=== PATIENT | male | born 1970 | race Caucasian/White ===

== ENCOUNTER 2017-09-02 12:29 | Emergency (ER) | payer OTHER ==
[~2017-09-02] VITALS: Ht 180.3 cm; Wt 102.1 kg
[~2017-09-02 12:29] MED LIST: LISI10TA2 PO; METF500T4 PO
[2017-09-02] MEDS ORDERED: IV NORMAL SALINE 1000ML BAG 1,000 ML IV SCH (12:52)
--- NOTE | 2017-09-02 13:04 | PHYS DOC ---
Past Medical History Past Medical History: Diabetes-Type II, GERD Past Surgical History: Other Additional Past Surgical Histo: left hand injury Alcohol Use: Occasionally Drug Use: None Adult General Chief Complaint Chief Complaint: DIZZY/LIGHT HEADED HPI HPI Patient is a 46 year old male who presents with complaint of lightheadedness and shaking. Patient states that he awoke with these symptoms and states that they have progressively worsened over the past 1-2 hours. Patient states that he has felt very lightheaded and has had episodes where he felt like he is going to pass out. Patient states that this normally happens whenever his blood sugar is low, however he has been checking his blood sugars and notes that they have not been abnormally low. Patient states he did eat prior to coming into the emergency department hoping that would help but has not improved his symptoms. Patient states that he feels shaky all over and also states that he is having mild chest tightness but denies that he is having any pain in his chest. Patient has history of hypertension, type 2 diabetes mellitus, and hyperlipidemia. Patient denies any abdominal pain, nausea, vomiting, or fever. Review of Systems Review of Systems Constitutional: Dizziness, lightheadedness, denies fever or chills[] Eyes: Denies change in visual acuity, redness, or eye pain [] HENT: Denies nasal congestion or sore throat [] Respiratory: Denies cough or shortness of breath [] Cardiovascular: "Chest tightness"[] GI: Denies abdominal pain, nausea, vomiting, bloody stools or diarrhea [] : Denies dysuria or hematuria [] Musculoskeletal: Denies back pain or joint pain [] Integument: Denies rash or skin lesions [] Neurologic: Denies headache, focal weakness or sensory changes [] All other systems were reviewed and found to be within normal limits, except as documented in this note. Current Medications Current Medications Current Medications Medications (Trade) Dose Ordered Sig/Aurelia Start Time Stop Time Status Last Admin Dose Admin Lorazepam (Ativan) 0.5 mg 1X ONCE 09/02/17 13:00 09/02/17 13:01 DC 09/02/17 13:24 0.5 MG Sodium Chloride 1,000 ml @ 1,000 mls/hr Q1H 09/02/17 12:52 09/02/17 13:51 DC 09/02/17 13:24 1,000 MLS/HR Allergies Allergies Allergies Coded Allergies Type Severity Reaction Last Updated Verified No Known Drug Allergies 02/13/16 No Physical Exam Physical Exam Constitutional: Alert, afebrile, tremulous, appears in mild distress. [] HENT: Normocephalic, atraumatic, bilateral external ears normal, oropharynx moist, no oral exudates, nose normal. [] Eyes: PERRLA, EOMI, conjunctiva normal, no discharge. [] Neck: Normal range of motion, no tenderness, supple, no stridor. [] Cardiovascular: Tachycardia, regular rhythm, no murmur [] Lungs & Thorax: Bilateral breath sounds clear to auscultation [] Abdomen: Bowel sounds normal, soft, no tenderness, no masses, no pulsatile masses. [] Skin: Warm, dry, no erythema, no rash. [] Back: No tenderness, no CVA tenderness. [] Extremities: No tenderness, no cyanosis, no clubbing, ROM intact, no edema. [] Neurologic: Alert and oriented X 3, normal motor function, normal sensory function, no focal deficits noted. [] Current Patient Data Vital Signs Vital Signs Date Time Temp Pulse Resp B/P (MAP) Pulse Ox O2 Delivery O2 Flow Rate FiO2 09/02/17 16:00 88 97 09/02/17 12:50 98.0 20 172/97 (122) Room Air 98.0 Lab Values Laboratory Tests Test 09/02/17 12:43 09/02/17 12:55 09/02/17 14:10 09/02/17 15:47 Glucose (Fingerstick) 128 mg/dL (70-99) H White Blood Count 5.7 x10^3/uL (4.0-11.0) Red Blood Count 4.78 x10^6/uL (4.30-5.70) Hemoglobin 15.5 g/dL (13.0-17.5) Hematocrit 45.3 % (39.0-53.0) Mean Corpuscular Volume 95 fL (79-100) Mean Corpuscular Hemoglobin 32 pg (25-35) Mean Corpuscular Hemoglobin Concent 34 g/dL (31-37) Red Cell Distribution Width 13.6 % (11.5-14.5) Platelet Count 166 x10^3/uL (140-400) Neutrophils (%) (Auto) 76 % (31-73) H Lymphocytes (%) (Auto) 13 % (24-48) L Monocytes (%) (Auto) 8 % (0-9) Eosinophils (%) (Auto) 1 % (0-3) Basophils (%) (Auto) 1 % (0-3) Neutrophils # (Auto) 4.3 x10^3uL (1.8-7.7) Lymphocytes # (Auto) 0.8 x10^3/uL (1.0-4.8) L Monocytes # (Auto) 0.5 x10^3/uL (0.0-1.1) Eosinophils # (Auto) 0.1 x10^3/uL (0.0-0.7) Basophils # (Auto) 0.1 x10^3/uL (0.0-0.2) Sodium Level 132 mmol/L (136-145) L Potassium Level 3.8 mmol/L (3.5-5.1) Chloride Level 95 mmol/L (98-107) L Carbon Dioxide Level 25 mmol/L (21-32) Anion Gap 12 (6-14) Blood Urea Nitrogen 13 mg/dL (8-26) Creatinine 0.8 mg/dL (0.7-1.3) Estimated GFR (Cockcroft-Gault) 104.1 BUN/Creatinine Ratio 16 (6-20) Glucose Level 119 mg/dL (70-99) H Calcium Level 9.4 mg/dL (8.5-10.1) Total Bilirubin 0.7 mg/dL (0.2-1.0) Aspartate Amino Transferase (AST) 33 U/L (15-37) Alanine Aminotransferase (ALT) 39 U/L (16-63) Alkaline Phosphatase 78 U/L (46-116) Creatine Kinase 412 U/L (39-308) H 313 U/L (39-308) H Creatine Kinase MB (Mass) 3.8 ng/mL (0.0-3.6) H 2.6 ng/mL (0.0-3.6) Creatine Kinase MB Relative Index 0.9 % (0-4) 0.8 % (0-4) Troponin I Quantitative < 0.017 ng/mL (0.000-0.055) < 0.017 ng/mL (0.000-0.055) Total Protein 8.4 g/dL (6.4-8.2) H Albumin 4.5 g/dL (3.4-5.0) Albumin/Globulin Ratio 1.2 (1.0-1.7) Lipase 185 U/L (73-393) Urine Collection Type Unknown Urine Color Yellow Urine Clarity Clear Urine pH 7.5 Urine Specific [place] <=1.005 Urine Protein Negative mg/dL (NEG-TRACE) Urine Glucose (UA) Negative mg/dL (NEG) Urine Ketones (Stick) Trace mg/dL (NEG) Urine Blood Negative (NEG) Urine Nitrite Negative (NEG) Urine Bilirubin Negative (NEG) Urine Urobilinogen Dipstick 1.0 mg/dL (0.2 mg/dL) Urine Leukocyte Esterase Trace (NEG) Urine RBC 0 /HPF (0-2) Urine WBC Occ /HPF (0-4) Urine Bacteria 0 /HPF (0-FEW) Laboratory Tests 09/02/17 12:55 Laboratory Tests 09/02/17 12:55 EKG EKG EKG #1 interpreted by me at 1255: Heart rate 104, sinus tachycardia, normal intervals, normal axis, no acute ST/T-wave abnormalities present EKG #2 interpreted by me at 1550: Heart rate 88, sinus rhythm, normal intervals , normal axis, no acute ST/T-wave abnormalities present[] Radiology/Procedures Radiology/Procedures [facility] [address] [place] [address] IMAGING REPORT Signed PATIENT: LILIANA JULIO ACCOUNT: [id number] : 1970 LOCATION: ER AGE: 46 SEX: M EXAM STATUS: REG ER ORD. PHYSICIAN: ROSARIO MONDRAGON MD REASON: dizziness, near syncope PROCEDURE: PORTABLE CHEST 1V Indication: Dizziness. Time of exam 1335 hours. No prior studies are available for comparison. FINDINGS: The heart size is normal. The lungs are clear. No pleural effusion or pneumothorax is identified. The pulmonary vascularity is normal. IMPRESSION: No acute abnormality detected. DICTATED and SIGNED BY: AHSAN HODGES MD DATE: 09/02/17 3412 CC: ROSARIO MONDRAGON MD; CEDRIC HALEY APRN ~ [] Course & Med Decision Making Course & Med Decision Making Pertinent Labs and Imaging studies reviewed. (See chart for details) Patient was given IV fluids and Ativan in the emergency department. The patient' s initial cardiac enzyme panel showed an elevation in CK and CK-MB with a normal cardiac index and a normal troponin level. The patient stated that his symptoms have completely resolved after being given the fluids and Ativan. A second set of cardiac enzymes and a second EKG were obtained. The second EKG showed no changes in the patient's second panel of cardiac enzymes showed a downward trend in the CK and CK-MB and a continued normal troponin level. The patient's symptoms are atypical for acute coronary syndrome. The patient's symptoms appear likely due to an acute stress reaction or possible panic attack. The patient's HEART score is 2 which places him in a low risk category for acute cardiac events. The patient is appropriate for outpatient discharge and follow-up in the next 2 days with cardiology for reevaluation. Advised patient to return emergency department for any worsening symptoms. The patient will continue on a daily aspirin 81 mg tablet until following up with cardiology. Patient voiced understanding and in agreement with treatment plan. Dragon Disclaimer Dragon Disclaimer This electronic medical record was generated, in whole or in part, using a voice recognition dictation system. Departure Departure Impression: Primary Impression: Light-headedness Additional Impression: Acute stress reaction Disposition: 01 HOME, SELF-CARE Condition: IMPROVED Referrals: CEDRIC HALEY APRN (PCP) EDINSON ADAME MD Patient Instructions: Anxiety and Panic Attacks, Near-Syncope Additional Instructions: Your evaluation in the emergency department showed no evidence of an acute life- threatening process. It is however recommended that she follow up with cardiology in the next 2 days for reevaluation. You will also be started on daily aspirin at this time as a protective measure for your heart. Please return to the emergency department for any worsening symptoms. Scripts Aspirin (ASPIR 81) 81 Mg Tablet.dr 1 TAB PO DAILY, #30 TAB 0 Refills Prov: ROSARIO MONDRAGON MD 09/02/17 Problem Qualifiers ROSARIO MONDRAGON MD Sep 02, 2017 13:04
[2017-09-02 13:13] LABS: BASO # 0.1 x10^3/uL (0.0-0.2); BASO % 1 % (0-3); CALCIUM 9.4 mg/dL (8.5-10.1); CREATININE 0.8 mg/dL (0.7-1.3); EOS % 1 % (0-3); GFR 104.1; HEMATOCRIT 45.3 % (39.0-53.0); HEMOGLOBIN 15.5 g/dL (13.0-17.5); LYMPH # 0.8 x10^3/uL (1.0-4.8); LYMPH % 13 % (24-48); MEAN CORPUSCULAR HEMOGLOBIN 32 pg (25-35); MEAN CORPUSCULAR HGB CONC 34 g/dL (31-37); MEAN CORPUSCULAR VOLUME 95 fL (79-100); MONO % 8 % (0-9); NEUT % 76 % (31-73); PLATELET COUNT 166 x10^3/uL (140-400); POTASSIUM 3.8 mmol/L (3.5-5.1); RED BLOOD COUNT 4.78 x10^6/uL (4.30-5.70); RED CELL DISTRIBUTION WIDTH 13.6 % (11.5-14.5); WHITE BLOOD COUNT 5.7 x10^3/uL (4.0-11.0)
[2017-09-02 13:19] LABS: ALBUMIN 4.5 g/dL (3.4-5.0); ALBUMIN/GLOBULIN RATIO 1.2 (1.0-1.7); TOTAL BILIRUBIN 0.7 mg/dL (0.2-1.0); TOTAL PROTEIN 8.4 g/dL (6.4-8.2)
[2017-09-02 13:28] LABS: CKMB MASS 3.8 ng/mL (0.0-3.6)
--- NOTE | 2017-09-02 13:38 | EKG ---
[facility] [address] [place] [address] Test Date: 2017-09-02 Test Time: 12:52:34 Pat Name: LILIANA JULIO Department: Room: Gender: M [employer] Art[employer]: : 1970 Requested By: ROSARIO MONDRAGON Order Number: [id number] Reading MD: Measurements Intervals [place] Rate: 104 P: 39 MI: 166 QRS: 27 QRSD: 84 T: 42 QT: 328 QTc: 437 Interpretive Statements SINUS TACHYCARDIA LEFT ATRIAL ABNORMALITY ABNORMAL ECG RI6.01 No previous ECG available for comparison
--- NOTE | 2017-09-02 13:51 | RAD ---
Indication: Dizziness. Time of exam 1335 hours. No prior studies are available for comparison. FINDINGS: The heart size is normal. The lungs are clear. No pleural effusion or pneumothorax is identified. The pulmonary vascularity is normal. IMPRESSION: No acute abnormality detected.
[2017-09-02 14:18] LABS: BILIRUBIN,URINE NEGATIVE (NEG); GLUCOSE,URINE NEGATIVE (NEG); NITRITE,URINE NEGATIVE (NEG); PH,URINE 7.5; PROTEIN,URINE NEGATIVE (NEG-TRACE)
[2017-09-02 14:38] LABS: RBC,URINE 0 /HPF (0-2)
[2017-09-02 14:39] LABS: BACTERIA,URINE 0 /HPF (0-FEW); WBC,URINE OCC /HPF (0-4)
--- NOTE | 2017-09-02 15:47 | EKG ---
[facility] [address] [place] [address] Test Date: 2017-09-02 Test Time: 15:44:39 Pat Name: LILIANA JULIO Department: Room: Gender: M [employer] Person: : 1970 Requested By: ROSARIO MONDRAGON Order Number: [id number] Reading MD: Measurements Intervals [place] Rate: 88 P: 34 MD: 160 QRS: 25 QRSD: 84 T: 34 QT: 344 QTc: 420 Interpretive Statements SINUS RHYTHM NORMAL ECG RI6.01 No previous ECG available for comparison
[2017-09-02 16:28] LABS: CKMB MASS 2.6 ng/mL (0.0-3.6)
[2017-09-02] MEDS ORDERED: ASPIRIN 325 MG TABLET PO ONE (16:45)
[2017-09-02] MEDS ORDERED: ASPI-482 PO (16:46)
[2017-09-02 17:00] VITALS: BP 135/79
== END 2017-09-02 17:00 | disposition home or self-care (01) ==
LOC: ER 12:29
DX: R42 Dizziness and giddiness (principal); F43.0 Acute stress reaction; E11.9 Type 2 diabetes mellitus without complications; E78.5 Hyperlipidemia, unspecified; I10 Essential (primary) hypertension; K21.9 Gastro-esophageal reflux disease without esophagitis; Z79.82 Long term (current) use of aspirin
CPT/HCPCS: 36415; 71010; 80053; 81001; 82553; 82962; 83690; 84484; 85025; 87086; 93005; 96361; 96374; 99285; J2060; J7030

== ENCOUNTER → 2017-10-07 | Outpatient (CLI) | payer OTHER ==
[2017-10-07 08:56] LABS: ALBUMIN 4.1 g/dL (3.4-5.0); ALBUMIN/GLOBULIN RATIO 1.1 (1.0-1.7); ALK PHOS 70 U/L (46-116); ALT (SGPT) 40 U/L (16-63); ANION GAP 11 (6-14); AST (SGOT) 24 U/L (15-37); BLOOD UREA NITROGEN 15 mg/dL (8-26); BUN/CREATININE RATIO 21 (6-20); CALCIUM 8.6 mg/dL (8.5-10.1); CARBON DIOXIDE 25 mmol/L (21-32); CHLORIDE 104 mmol/L (98-107); CHOLESTEROL 212 mg/dL (0-200); CREATININE 0.7 mg/dL (0.7-1.3); GFR 121.4; GLUCOSE 88 mg/dL (70-99); HDLC 59 mg/dL (40-60); LDLC 128 mg/dL (0-100); NON-HDL CHOLESTEROL 153 mg/dL (0-129); POTASSIUM 4.3 mmol/L (3.5-5.1); SODIUM 140 mmol/L (136-145); TOTAL BILIRUBIN 0.8 mg/dL (0.2-1.0); TOTAL PROTEIN 7.9 g/dL (6.4-8.2); TRIGLYCERIDES 127 mg/dL (0-150); VLDLC 25 mg/dL (0-40)
[2017-10-07 08:59] LABS: CHOLESTEROL/HDL RATIO 3.6
[2017-10-07] MEDS: REGADENOSON 0.4 MG/5 ML DISP.SYRIN. IV (10:35)
== END | disposition home or self-care (01) ==
LOC: NM 08:07
DX: R07.89 Other chest pain (principal); E78.00 Pure hypercholesterolemia, unspecified; I10 Essential (primary) hypertension; E11.9 Type 2 diabetes mellitus without complications
CPT/HCPCS: 36415; 78452; 80053; 80061; 93017; 96374; 96375; 96376; A9500; J2785

== ENCOUNTER → 2017-11-17 | Outpatient (CLI) | payer OTHER | END | disposition home or self-care (01) | LOC: KCIC US 08:38 | DX: N43.3 Hydrocele, unspecified (principal); N50.812 Left testicular pain | CPT/HCPCS: 76870 ==

== ENCOUNTER 2018-08-19 00:26 | Emergency (ER) | payer OTHER ==
[~2018-08-19] VITALS: Ht 180.3 cm; Wt 99.8 kg
[~2018-08-19 00:26] MED LIST changes: +ASPI-482 PO; +METF500T16 PO; -METF500T4 PO
--- NOTE | 2018-08-19 00:47 | PHYS DOC ---
Past Medical History Past Medical History: Depression, Diabetes-Type II, GERD, High Cholesterol, Hypertension Past Surgical History: Other Additional Past Surgical Histo: left hand injury, RIGHT GREAT TOE AMPUTATION Alcohol Use: Occasionally Drug Use: None Adult General Chief Complaint Chief Complaint: SUICDAL IDEATION [facility] HPI Patient is a 47 year old with history of diabetes II, hypertension, depression, high cholesterol who presents today to the emergency room for suicide ideations. Patient states he is under a lot of stress. He states he was thinking of killing himself using a pistol. Patient denies any homicidal ideations. RN states patient was drinking. Patient not giving much information. Review of Systems Review of Systems Constitutional: Denies fever or chills [] Eyes: Denies change in visual acuity, redness, or eye pain [] HENT: Denies nasal congestion or sore throat [] Respiratory: Denies cough or shortness of breath [] Cardiovascular: No additional information not addressed in HPI [] GI: Denies abdominal pain, nausea, vomiting, bloody stools or diarrhea [] : Denies dysuria or hematuria [] Musculoskeletal: Denies back pain or joint pain [] Integument: Denies rash or skin lesions [] Neurologic: Denies headache, focal weakness or sensory changes [] Psych: Reports suicidal ideations All other systems were reviewed and found to be within normal limits, except as documented in this note. Current Medications Current Medications Current Medications Medications (Trade) Dose Ordered Sig/Aurelia Start Time Stop Time Status Last Admin Dose Admin Lorazepam (Ativan) 1 mg 1X ONCE 08/19/18 02:45 08/19/18 02:46 DC 08/19/18 02:43 1 MG Multivitamins 10 ml/Thiamine HCl 100 mg/Folic Acid 1 mg/Sodium Chloride 1,011.2 ml @ 1,000.088 mls/hr 1X ONCE 08/19/18 01:00 08/19/18 02:00 DC 08/19/18 00:58 1,000.088 MLS/HR Allergies Allergies Allergies Coded Allergies Type Severity Reaction Last Updated Verified No Known Drug Allergies 02/13/16 No Physical Exam Physical Exam Constitutional: Well developed, well nourished, no acute distress, non-toxic appearance. [] HENT: Normocephalic, atraumatic, bilateral external ears normal, oropharynx moist, no oral exudates, nose normal. [] Eyes: PERRLA, EOMI, conjunctiva normal, no discharge. [] Neck: Normal range of motion, no tenderness, supple, no stridor. [] Cardiovascular:Heart rate regular rhythm, no murmur [] Lungs & Thorax: Bilateral breath sounds clear to auscultation [] Abdomen: Bowel sounds normal, soft, no tenderness, no masses, no pulsatile masses. [] Skin: Warm, dry, no erythema, no rash. [] Back: No tenderness, no CVA tenderness. [] Extremities: No tenderness, no cyanosis, no clubbing, ROM intact, no edema. [] Neurologic: Alert and oriented X 3, normal motor function, normal sensory function, no focal deficits noted. [] Psychologic: Appears depressed Current Patient Data Vital Signs Vital Signs Date Time Temp Pulse Resp B/P (MAP) Pulse Ox O2 Delivery O2 Flow Rate FiO2 08/19/18 00:26 97.6 98 20 135/80 (98) 100 Room Air 97.6 Lab Values Laboratory Tests Test 08/19/18 00:54 08/19/18 01:40 White Blood Count 6.8 x10^3/uL (4.0-11.0) Red Blood Count 4.24 x10^6/uL (4.30-5.70) L Hemoglobin 13.9 g/dL (13.0-17.5) Hematocrit 39.7 % (39.0-53.0) Mean Corpuscular Volume 94 fL (79-100) Mean Corpuscular Hemoglobin 33 pg (25-35) Mean Corpuscular Hemoglobin Concent 35 g/dL (31-37) Red Cell Distribution Width 13.2 % (11.5-14.5) Platelet Count 132 x10^3/uL (140-400) L Neutrophils (%) (Auto) 68 % (31-73) Lymphocytes (%) (Auto) 18 % (24-48) L Monocytes (%) (Auto) 11 % (0-9) H Eosinophils (%) (Auto) 2 % (0-3) Basophils (%) (Auto) 1 % (0-3) Neutrophils # (Auto) 4.6 x10^3uL (1.8-7.7) Lymphocytes # (Auto) 1.2 x10^3/uL (1.0-4.8) Monocytes # (Auto) 0.8 x10^3/uL (0.0-1.1) Eosinophils # (Auto) 0.1 x10^3/uL (0.0-0.7) Basophils # (Auto) 0.1 x10^3/uL (0.0-0.2) Sodium Level 142 mmol/L (136-145) Potassium Level 3.3 mmol/L (3.5-5.1) L Chloride Level 103 mmol/L (98-107) Carbon Dioxide Level 25 mmol/L (21-32) Anion Gap 14 (6-14) Blood Urea Nitrogen 16 mg/dL (8-26) Creatinine 0.9 mg/dL (0.7-1.3) Estimated GFR (Cockcroft-Gault) 90.4 BUN/Creatinine Ratio 18 (6-20) Glucose Level 101 mg/dL (70-99) H Calcium Level 9.0 mg/dL (8.5-10.1) Total Bilirubin 0.8 mg/dL (0.2-1.0) Aspartate Amino Transferase (AST) 38 U/L (15-37) H Alanine Aminotransferase (ALT) 63 U/L (16-63) Alkaline Phosphatase 78 U/L (46-116) Total Protein 7.6 g/dL (6.4-8.2) Albumin 3.9 g/dL (3.4-5.0) Albumin/Globulin Ratio 1.1 (1.0-1.7) Lipase 172 U/L (73-393) Salicylates Level < 2.8 mg/dL (2.8-20.0) L Salicylate Last Dose Date Unknown Salicylate Last Dose Time Unknown Acetaminophen Level < 2 mcg/ml (10-30) L Acetaminophen Last Dose Date Unknown Acetaminophen Last Dose Time Unknown Ethyl Alcohol Level 273 mg/dL (0-10) H Urine Collection Type Void Urine Color Yellow Urine Clarity Clear Urine pH 6.0 Urine Specific [place] 1.010 Urine Protein Negative mg/dL (NEG-TRACE) Urine Glucose (UA) Negative mg/dL (NEG) Urine Ketones (Stick) Negative mg/dL (NEG) Urine Blood Negative (NEG) Urine Nitrite Negative (NEG) Urine Bilirubin Negative (NEG) Urine Urobilinogen Dipstick 0.2 mg/dL (0.2 mg/dL) Urine Leukocyte Esterase Negative (NEG) Urine RBC Occ /HPF (0-2) Urine WBC Occ /HPF (0-4) Urine Squamous Epithelial Cells Occ /LPF Urine Bacteria 0 /HPF (0-FEW) Urine Opiates Screen Neg (NEG) Urine Methadone Screen Neg (NEG) Urine Barbiturates Neg (NEG) Urine Phencyclidine Screen Neg (NEG) Urine Amphetamine/Methamphetamine Neg (NEG) Urine Benzodiazepines Screen Neg (NEG) Urine Cocaine Screen Neg (NEG) Urine Cannabinoids Screen Neg (NEG) Urine Ethyl Alcohol Pos (NEG) Laboratory Tests 08/19/18 00:54 Laboratory Tests 08/19/18 00:54 EKG EKG [] Radiology/Procedures Radiology/Procedures [] Course & Med Decision Making Course & Med Decision Making Pertinent Labs and Imaging studies reviewed. (See chart for details) This is a 47-year-old male patient presenting to the ED today from home for suicidal ideations. Patient was thinking of killing himself with a pistol. Spoke with Austin from the PAT team who will come and talk to patient [phone] Care transferred to . [facility]: Received patient at 1 AM. Agree with previous H&P. Patient has remained stable. Patient was evaluated by the PAT team who recommended admission to [facility]. Physician at [facility] accepted the patient for transfer. Patient was transferred in improved condition. Dragon Disclaimer Dragon Disclaimer This electronic medical record was generated, in whole or in part, using a voice recognition dictation system. Departure Departure Impression: Primary Impression: Suicidal ideation Disposition: 65 XFER TO PSYCH HOSP/UNIT Condition: STABLE Referrals: CEDRIC HALEY APRN (PCP) MAXIMO CASTILLO APRN Aug 19, 2018 00:47 JUAN ANTONIO MAURO DO Aug 19, 2018 03:35
[2018-08-19] MEDS ORDERED: MULTIVIT INFUSN,ADULT 4,VIT K 10 ML, THIAMINE INJ 100 MG, FOLIC ACID INJ 1 MG in IV NOR... IV ONE (01:00)
[2018-08-19 01:10] LABS: BASO # 0.1 x10^3/uL (0.0-0.2); BASO % 1 % (0-3); EOS # 0.1 x10^3/uL (0.0-0.7); EOS % 2 % (0-3); HEMATOCRIT 39.7 % (39.0-53.0); HEMOGLOBIN 13.9 g/dL (13.0-17.5); LYMPH # 1.2 x10^3/uL (1.0-4.8); LYMPH % 18 % (24-48); MEAN CORPUSCULAR HEMOGLOBIN 33 pg (25-35); MEAN CORPUSCULAR HGB CONC 35 g/dL (31-37); MEAN CORPUSCULAR VOLUME 94 fL (79-100); MONO # 0.8 x10^3/uL (0.0-1.1); MONO % 11 % (0-9); NEUT # 4.6 x10^3uL (1.8-7.7); NEUT % 68 % (31-73); PLATELET COUNT 132 x10^3/uL (140-400); RED BLOOD COUNT 4.24 x10^6/uL (4.30-5.70); RED CELL DISTRIBUTION WIDTH 13.2 % (11.5-14.5); WHITE BLOOD COUNT 6.8 x10^3/uL (4.0-11.0)
[2018-08-19 01:16] LABS: CREATININE 0.9 mg/dL (0.7-1.3); GFR 90.4; POTASSIUM 3.3 mmol/L (3.5-5.1)
[2018-08-19 01:22] LABS: ALBUMIN 3.9 g/dL (3.4-5.0); ALBUMIN/GLOBULIN RATIO 1.1 (1.0-1.7); TOTAL BILIRUBIN 0.8 mg/dL (0.2-1.0); TOTAL PROTEIN 7.6 g/dL (6.4-8.2)
[2018-08-19 01:28] LABS: ETHANOL 273 mg/dL (0-10)
[2018-08-19 01:29] LABS: ACETAMIN < 2 mcg/ml (10-30); SALIC < 2.8 mg/dL (2.8-20.0)
[2018-08-19 01:58] LABS: BILIRUBIN,URINE NEGATIVE (NEG); CLARITY,URINE CLEAR; COLOR,URINE YELLOW; NITRITE,URINE NEGATIVE (NEG); PROTEIN,URINE NEGATIVE (NEG-TRACE); UROBILINOGEN,URINE 0.2 mg/dL (0.2 mg/dL)
[2018-08-19 02:13] LABS: BARBITURATES NEG (NEG); BENZODIAZEPINES NEG (NEG); CANNABINOIDS NEG (NEG); COCAINE NEG (NEG); METHADONE NEG (NEG); OPIATES NEG (NEG); PHENCYCLIDINE NEG (NEG)
[2018-08-19 02:20] LABS: RBC,URINE OCC /HPF (0-2); WBC,URINE OCC /HPF (0-4)
[2018-08-19 02:21] LABS: BACTERIA,URINE 0 /HPF (0-FEW); SQUAMOUS EPITHELIAL CELL,UR OCC /LPF
[2018-08-19 02:23] LABS: AMPHETAMINE/METHAMPHETAMINE NEG (NEG)
[2018-08-19 03:33] VITALS: BP 114/65
== END 2018-08-19 03:57 ==
LOC: ER 00:26
DX: R45.851 Suicidal ideations (principal); F43.9 Reaction to severe stress, unspecified; K21.9 Gastro-esophageal reflux disease without esophagitis; E78.00 Pure hypercholesterolemia, unspecified; E11.9 Type 2 diabetes mellitus without complications; I10 Essential (primary) hypertension; F32.9 Major depressive disorder, single episode, unspecified
CPT/HCPCS: 36415; 80053; 80307; 80329; 81001; 83690; 84443; 85025; 96365; 96375; 99285; G0480; G6039; J2060; J7030